=== PATIENT | male | born 1960 | race Caucasian/White ===

== ENCOUNTER 2021-11-24 08:46 | Outpatient (CLI) | payer BC, SELFPAY ==
[2021-11-23 16:00] VITALS: BMI 46.1
[2021-11-24] VITALS (9 sets, daily range): BP systolic 115–136; BP diastolic 64–82; PULSE 50–72; RESP 12–18; TEMP 36.4; O2SAT 96–99
[2021-11-24 09:19] LABS: Basophils Absolute Auto 0.1 K/mm3 (0.0-0.1); Eosinophils Absolute Auto 0.2 K/mm3 (0-0.3); Eosinophils Percent Auto 2.2 % (0-4.4); Hematocrit 39.7 % (42.0-52.0); Hemoglobin 13.2 g/dL (14.0-18.0); Immature Granulocyte Absolute 0.03 K/mm3 (0.00-0.031); Immature Granulocyte Percent A 0.3 % (0-0.5); Lymphocytes Absolute Auto 2.56 K/mm3 (0.9-3.2); Lymphocytes Percent Auto 28.5 % (18.3-44.2); Mean Corpuscular HGB Conc 33.2 g/dl (32-36); Mean Corpuscular Hemoglobin 33.9 pg (26-34); Mean Corpuscular Volume 102.1 fl (80-100); Mean Platelet Volume 8.7 fl (7.4-10.4); Monocytes Absolute Auto 0.8 K/mm3 (0.1-0.6); Monocytes Percent Auto 8.6 % (2.6-8.5); Neutrophils Absolute Auto 5.3 K/mm3 (1.3-6.7); Neutrophils Percent Auto 59.4 % (45.5-73.1); Platelet Count Result 215 k/mm3 (150-375); Red Blood Count 3.89 M/mm3 (4.6-6.20); Red Cell Distribution Width 13.8 % (11.5-14.5)
[2021-11-24 09:31] LABS: Anion Gap 6 mmol/L (8-16); Blood Urea Nitrogen 20 mg/dL (9-20); Calcium 9.4 mg/dL (8.4-10.2); Carbon Dioxide 31 mmol/L (22-30); Chloride 101 mmol/L (98-107); Estimated CRCL calculation 88 ml/min; Estimated Glomerular Filt Rate > 60; Glucose 101 mg/dL (65-110); Potassium 4.1 mmol/L (3.4-5.0); Sodium 138 mmol/L (137-145)
--- NOTE | 2021-11-24 09:48 | WPDMODSED ---
Moderate Sedation Note-Pt Data Patient Data Diagnosis: exertional dyspnea/fatigue morbid obesity Present Complaint: exertional intolerance with fatigue and dyspnea Procedure to be performed/Plan: left heart catheterization Allergies Allergy/AdvReac Type Severity Reaction Status Date / Time codeine Allergy Anxiety Verified 11/24/21 09:21 hydrocodone Allergy Hypotension Verified 11/24/21 09:21 morphine Allergy Anaphylaxis Verified 11/24/21 09:21 Home Medications Medication Instructions Recorded Confirmed Type albuterol sulfate 90 mcg/actuation 2 puff inhalation Q4-6H PRN 11/23/21 11/23/21 History aerosol inhaler Shortness Of Breath amlodipine 10 mg tablet 10 mg PO DAILY 11/23/21 11/23/21 History aspirin 81 mg tablet 81 mg PO BID 11/23/21 11/24/21 History buspirone 7.5 mg tablet 7.5 mg PO BID 11/23/21 11/24/21 History carvedilol 12.5 mg tablet 12.5 mg PO BID 11/23/21 11/24/21 History chlorthalidone 25 mg tablet 25 mg PO DAILY 11/23/21 11/23/21 History doxazosin 1 mg tablet 8 mg PO DAILY 11/23/21 11/24/21 History fluoxetine 40 mg capsule 40 mg PO DAILY 11/23/21 11/23/21 History fluticasone propionate 44 2 puff inhalation BID 11/23/21 11/23/21 History mcg/actuation HFA aerosol inhaler (Flovent HFA) hydralazine 50 mg tablet 50 mg PO BID 11/23/21 11/24/21 History ipratropium 0.5 mg-albuterol 3 mg 3 ml inhalation BID PRN Dyspnea 11/23/21 11/24/21 History (2.5 mg base)/3 mL nebulization soln isosorbide mononitrate 30 mg 30 mg PO DAILY 11/23/21 11/23/21 History tablet,extended release 24 hr nitroglycerin 0.4 mg sublingual 0.4 mg sublingual Q5M PRN Chest 11/23/21 11/23/21 History tablet (Nitrostat) Pain potassium chloride 20 mEq 20 meq PO BID 11/23/21 11/24/21 History tablet,extended release(part/cryst) (Klor-Con M) spironolactone 25 mg tablet 12.5 mg PO DAILY 11/23/21 11/24/21 History telmisartan 20 mg tablet 20 mg PO DAILY 11/23/21 11/23/21 History melatonin 5 mg tablet 5 mg PO HS PRN Sleep 11/24/21 11/24/21 History umeclidinium 62.5 mcg-vilanterol 1 inh inhalation DAILY 11/24/21 11/24/21 History 25 mcg/actuation powdr for inhalation (Anoro Ellipta) Current Medications: Active Medications Sodium Chloride (Normal Saline Iv) 500 mls @ 100 mls/hr IV CONT .[facility]H [facility] Sedation/Anesthesia: No previous sedation/anesthesia problems (including family history). [facility] Social History Social History Smoking status: Former smoker Alcohol intake: former Substance use type: does not use Spiritual care concerns: No Mod Sed Physical Exam Physical Exam Pre Procedural Exam: Normal: Neck, Throat, Airway, Heart Rate, Heart Rhythm, Neuro Exam and Extremities and Variation: Appearance ( pleasant morbidly obese man), Lungs ( breath sounds distant but clear) and Heart Size ( PMI not palpable) Hours since solid foods: 12 Hours since liquid intake: 12 Mallampati Classification: class III Internal Medicine - PN: Obj Da Vital Signs Vital Signs: Vital Signs - 24 hr 11/24/21 09:08 Temperature 36.4 C Pulse Rate 72 Respiratory Rate 18 Blood Pressure 122/80 Pulse Oximetry 97 Oxygen Delivery Room Air Meds/Results Medications: Active Medications Generic Name Dose Route Start Last Admin Trade Name Freq PRN Reason Stop Dose Admin Sodium Chloride 500 mls @ 100 mls/hr 11/24/21 09:00 Normal Saline Iv IV CONT .Q5H [facility] Labs CBC & Chem 7: 11/24/21 09:10 11/24/21 09:10 Labs: Laboratory Results - last 24 hr 11/24/21 11/24/21 09:10 09:10 WBC 9.0 RBC 3.89 L Hgb 13.2 L Hct 39.7 L MCV 102.1 H MCH 33.9 MCHC 33.2 RDW 13.8 Plt Count 215 MPV 8.7 Immature Gran % (Auto) 0.3 Neut % (Auto) 59.4 Lymph % (Auto) 28.5 Dent % (Auto) 8.6 H Eos % (Auto) 2.2 Baso % (Auto) 1.0 Lymph # (Auto) 2.56 Dent # (Auto) 0.8 H Eos # (Auto) 0.2 Baso # (Auto) 0.1 Abs Immat Gran (auto) 0.03 Absolute Neuts (a
--- NOTE | 2021-11-24 10:34 | P.PCNCC_ITS ---
Cardiac Cath Procedure Note Date of procedure:: 11/24/21 Performing physician:: Sacha Montana MD Indication:: exertional dyspnea/intermittent chest pain Brief clinical history:: this is a 61-year-old man with morbid obesity who is not known to have coronary disease. He is experiencing worsening exertional fatigue and intermittent chest pain as well. Angiography has been recommended in this setting. The patient has had negative coronary angiograms on 3 previous occasions according to the chart. Procedure Procedure performed:: left ventriculogram coronary angiogram Angio-Seal to right femoral artery Sedation/Medication given:: no sedation given( severe sleep apnea) Access site:: right femoral artery Estimated blood loss:: 20 cc Procedure note:: patient was brought to the cardiac catheterization lab in the postabsorptive state where the right femoral triangle was prepared and draped in the usual fashion. Anesthesia was provided with 1% lidocaine infiltrated locally. Using the modified Seldinger technique the right common femoral artery was punctured and a 5 [place] vascular sheath was placed. After this left heart catheterization was carried out. A 5 [place] angled pigtail catheter was used left-sided hemodynamics and to inject LV g in the our AO projection. Following this I used a standard Five [place] FL4 catheter to engage inject the left coronary artery in multiple projections. I then used a 5 [place] JR4 catheter to engage and inject the right coronary artery. following this the case was termin ated. An angiogram was performed of the femoral artery through the sheath after which a 6 [place] Angio-Seal device was deployed with a good hemostatic result. Procedure was well tolerated and uncomplicated. He left the cath laboratory technician with no evidence of a groin hematoma. Because of morbid obesity extra manual pressure was held even with the Angio-Seal device. Findings:: Hemodynamics: Central aortic pressure is 140/82 left ventricle 140 over 16 end-diastolic pressure 24. No gradient across the aortic valve. Left ventricle: The LV appears to be normal in size. There was a run of ventricular tachycardia at the time of the LV injection. When that ended ejection fraction was noted to be vigorous ejection fraction appears to be about 60% with no regional wall motion abnormalities. The left main coronary artery is short but nicely patent left anterior descending is a moderate caliber artery extending down to and around the apex. The LAD has modest luminal irregularities in the proximal 3rd but no stenosis is identified. Circumflex is a moderate caliber vessel which is codominant. The circumflex has minimal luminal irregularities in the midportion but no significant lesions are seen. The right coronary artery is moderate caliber codominant terminating in an RPDA. The right coronary also has minimal luminal irregularities but no angiographically significant disease. Conclusion:: 1. Codominant coronary circulation with minimal luminal irregularities but angiographically no significant coronary artery disease 2. normal left ventricular systolic function with elevated LVEDP Sacha Montana MD FACC
--- NOTE | 2021-11-24 11:37 | SUR.PHASEII ---
1132 patient offered PO Fluids or snack. He declined.
--- NOTE | 2021-11-24 12:54 | SUR.PHASEII ---
Pt up to chair, pt tolerated well, right groin sheath site dry, clear dressing in place, no hematoma or bleeding noted. Continue to monitor and prepare for discharge home.
== END 2021-11-24 13:34 | disposition home or self-care (01) ==
LOC: ANHCARD 08:49
PROVIDERS: Visit Provider Specialist
PROC: 4A023N7 Measurement of Cardiac Sampling and Pressure, Left Heart, Percutaneous Approach (ICD-10-PCS; CPT 93452; principal; 2021-11-24 10:30)
DX: R06.02 Shortness of breath (principal); R07.89 Other chest pain; R53.83 Other fatigue
CPT/HCPCS: 36415; 80048; 85025; 93458; C1760; C1887; C1894; G0269; J1644; J2250; J3010